=== PATIENT | female | born 1955 | race American Indian/Alaskan Native ===

== ENCOUNTER 2017-08-01 12:14 | Emergency (ER) | payer SELFPAY ==
[2017-08-01 14:16] LABS: Bacteria,Urine 1+ /HPF (Negative); Bilirubin,Urine NEG (Negative); Blood,Urine NEG (Negative); Color,Urine Yellow (Yellow); Granular Casts,Urine 1 /LPF; Mucus,Urine FEW /HPF; Nitrite,Urine NEG (Negative); Urobilinogen,Urine < 2.0 mg/dL (<2.0)
[2017-08-01 14:18] LABS: RBC,Urine < 1.0 /HPF (0.0-6.0)
[2017-08-01 14:21] LABS: Basophils # (Auto) 0.1 K/mm3 (0.0-0.1); Basophils % (Auto) 0.7 % (0.0-1.8); Eosinophils # (Auto) 0.1 K/mm3 (0.0-0.4); Eosinophils % (Auto) 1.3 % (0.0-4.3); Hematocrit 44.1 % (30.3-42.9); Hemoglobin 14.3 gm/dl (10.1-14.3); Lymphocytes # (Auto) 2.5 K/mm3 (1.2-5.4); Lymphocytes % (Auto) 34.7 % (13.4-35.0); Mean Corpuscular HGB Conc 33 % (30-34); Mean Corpuscular Hemoglobin 29 pg (28-32); Mean Corpuscular Volume 90 fl (79-97); Monocytes # (Auto) 0.4 K/mm3 (0.0-0.8); Monocytes % (Auto) 5.9 % (0.0-7.3); Platelet Count 277 K/mm3 (140-440); Red Blood Count 4.92 M/mm3 (3.65-5.03); Red Cell Distribution Width 15.1 % (13.2-15.2)
[2017-08-01 14:37] LABS: Alanine Aminotransferase 13 units/L (7-56); Albumin 4.3 g/dL (3.9-5); BUN/Creatinine Ratio 19; Blood Urea Nitrogen 13 mg/dL (7-17); Calcium 9.5 mg/dL (8.4-10.2); Hemolysis Index 25
[2017-08-01] MEDS ORDERED: CATAPRES PO ONE (16:29)
[2017-08-01] MEDS ORDERED: ZOFRAN IV ONE (16:29)
[2017-08-01] MEDS ORDERED: TORADOL IV ONE (16:29)
[2017-08-01] MEDS ORDERED: MORPHINE IV ONE (16:29)
--- NOTE | 2017-08-01 17:50 | Cat Scan Report ---
FINAL REPORT EXAM: CT ABDOMEN PELVIS W CON HISTORY: right sided abd pain TECHNIQUE: CT abdomen and pelvis with intravenous contrast PRIORS: None. FINDINGS: No acute abnormality identified in the lung bases. No focal abnormality identified within the liver parenchyma. The spleen demonstrates normal size and attenuation. No pancreatic abnormalities seen. The kidneys demonstrate symmetric contrast enhancement. No evidence of hydronephrosis. The adrenal glands are unremarkable Abdominal aorta is normal in caliber. No pathologically enlarged lymph nodes are identified. No signs of free fluid or free air No evidence of small bowel dilatation. Colon is nondistended. No pericolonic inflammatory change. The appendix is identified and is normal in size and attenuation Urinary bladder is unremarkable. IMPRESSION: Negative. No acute abnormalities seen
[2017-08-01 18:55] VITALS: BP 170/88
--- NOTE | 2017-08-01 19:26 | Emergency Department Report ---
ED Abdominal Pain HPI - General Chief Complaint: Abdominal Pain Stated Complaint: ABD PAIN Time Seen by Provider: 08/01/17 16:24 Source: patient Mode of arrival: Ambulatory Limitations: No Limitations - History of Present Illness Initial Comments: Patient is a 61-year-old female who has a past medical history of hypertension who is presenting with right-sided abdominal pain. Patient states pain is been present for approximately one month but is getting worse. Patient states that the pains got to the point where it hurts even touch the skin on the right side. Patient noticed some small fine bumps yesterday but they have dissipated. She denies fever nausea vomiting diarrhea cough chest pain at this time. Severity scale (0 -10): 8 Quality: stabbing, aching Consistency: constant - Related Data Previous Rx's Medication Instructions Recorded Last Taken Type Acyclovir 800 mg PO TID #21 tablet 08/01/17 Unknown Rx HYDROcodone/APAP 5-325 [[place] 1 each PO Q6HR PRN #12 tablet 08/01/17 Unknown Rx 5/325] Lisinopril/Hydrochlorothiazide 1 each PO DAILY #30 tablet 08/01/17 Unknown Rx [Zestoretic 10-12.5 mg Tablet] Allergies Allergy/AdvReac Type Severity Reaction Status Date / Time No Known Allergies Allergy Unverified 08/01/17 13:20 ED Review of Systems ROS: Stated complaint: ABD PAIN Other details as noted in HPI Comment: All other systems reviewed and negative ED Past Medical Hx - Past Medical History Hx Hypertension: Yes - Surgical History Past Surgical History?: Yes Additional Surgical History: had morphine pump removed 1 year ago, back surgery and neck surgery - Social History Smoking Status: Current Every Day Smoker Substance Use Type: None - Medications Home Medications: Home Medications Medication Instructions Recorded Confirmed Last Taken Type Acyclovir 800 mg PO TID #21 tablet 08/01/17 Unknown Rx HYDROcodone/APAP 5-325 [[place] 1 each PO Q6HR PRN #12 tablet 08/01/17 Unknown Rx 5/325] Lisinopril/Hydrochlorothiazide 1 each PO DAILY #30 tablet 08/01/17 Unknown Rx [Zestoretic 10-12.5 mg Tablet] ED Physical Exam - General Limitations: No Limitations General appearance: alert, in no apparent distress - Head Head exam: Present: atraumatic, normocephalic - Eye Eye exam: Present: normal appearance - ENT ENT exam: Present: mucous membranes moist - Neck Neck exam: Present: normal inspection - Respiratory Respiratory exam: Present: normal lung sounds bilaterally. Absent: respiratory distress - Cardiovascular Cardiovascular Exam: Present: regular rate, normal rhythm. Absent: systolic murmur, diastolic murmur, rubs, gallop - GI/Abdominal GI/Abdominal exam: Present: soft, tenderness (right upper quadrant), normal bowel sounds. Absent: distended, guarding, rebound, rigid - Extremities Exam Extremities exam: Present: normal inspection - Back Exam Back exam: Present: normal inspection - Neurological Exam Neurological exam: Present: alert, oriented X3 - Psychiatric Psychiatric exam: Present: normal affect, normal mood - Skin Skin exam: Present: warm, dry, intact, normal color. Absent: rash ED Course Vital Signs 08/01/17 08/01/17 08/01/17 13:21 16:11 16:15 Temperature 98.2 F Pulse Rate 86 79 Respiratory 20 23 12 Rate Blood Pressure 250/117 244/118 Blood Pressure [Left] Blood Pressure [Right] O2 Sat by Pulse 98 98 Oximetry 08/01/17 08/01/17 08/01/17 16:20 16:31 16:45 Temperature Pulse Rate 73 84 Respiratory 18 10 L 11 L Rate Blood Pressure 239/116 253/128 Blood Pressure [Left] Blood Pressure [Right] O2 Sat by Pulse 99 99 98 Oximetry 08/01/17 08/01/17 08/01/17 16:50 16:57 17:20 Temperature Pulse Rate 78 Respiratory 18 18 Rate Blood Pressure 249/124 Blood Pressure [Left] Blood Pressure [Right] O2 Sat by Pulse Oximetry 08/01/17 08/01/17 08/01/17 17:23 17:28 17:31 Temperature Pulse Rate 66 66 Respiratory 10 L 18 8 L Rate Blood Pressure 192/100 192/100 Blood Pressure [Left] Blood Pressure [Right] O2 Sat by Pulse 100 98 Oximetry 08/01/17 08/01/17 08/01/17 17:45 18:00 18:15 Temperature Pulse Rate 64 62 59 L Respiratory 13 13 13 Rate Blood Pressure 192/100 180/95 180/95 Blood Pressure [Left] Blood Pressure [Right] O2 Sat by Pulse 97 99 98 Oximetry 08/01/17 08/01/17 08/01/17 18:31 18:40 18:54 Temperature 98.7 F 98.8 F Pulse Rate 62 58 L 56 L Respiratory 14 18 18 Rate Blood Pressure 180/95 Blood Pressure 180/95 170/88 [Left] Blood Pressure 180/95 [Right] O2 Sat by Pulse 96 98 97 Oximetry ED Medical Decision Making - Lab Data Result diagrams: 08/01/17 13:56 08/01/17 13:56 - Radiology Data Radiology results: report reviewed CT abdomen and pelvis shows no acute process - Medical Decision Making Patient is a 61-year-old female past medical history 1 month of abdominal pain in the right upper quadrant. CT was negative therefore ultrasound of the gallbladder was ordered. Patient's pain was controlled with morphine and Toradol. The patient's blood pressure was elevated on arrival. Patient was given Catapres did improve the blood pressure. Patient does not have any signs of end organ damage. Patient has been off of her blood pressure medicines for several months. Critical care attestation.: If time is entered above; I have spent that time in minutes in the direct care of this critically ill patient, excluding procedure time. ED Disposition Clinical Impression: Abdominal pain Qualifiers: Abdominal location: right upper quadrant Qualified Code(s): R10.11 - Right upper quadrant pain Disposition: DC-01 TO HOME OR SELFCARE Is pt being admited?: No Does the pt Need Aspirin: No Condition: Fair Instructions: Abdominal Pain (ED) Prescriptions: Acyclovir 800 mg PO TID #21 tablet HYDROcodone/APAP 5-325 [[place] 5/325] 1 each PO Q6HR PRN #12 tablet PRN Reason: Pain Lisinopril/Hydrochlorothiazide [Zestoretic 10-12.5 mg Tablet] 1 each PO DAILY # 30 tablet Referrals: EUSEBIO LOERA MD [Staff Physician] - 3-5 Days
--- NOTE | 2017-08-01 20:04 | Ultrasound Report ---
FINAL REPORT EXAM: US ABDOMEN LIMITED HISTORY: RUQ pain TECHNIQUE: Ultrasound abdomen PRIORS: None. FINDINGS: No focal abnormalities identified in the visualized portion liver parenchyma. No evidence of cholelithiasis or gallbladder wall thickening. No pericholecystic fluid seen. The common bile duct is within normal limits measuring 0.42 centimeters Right kidney demonstrates no evidence of hydronephrosis. It measures 10.6 x 6.3 x 4.2 centimeters. Cortical thickness 0.8 centimeters IMPRESSION: Negative. No evidence of biliary obstruction or cholelithiasis
== END 2017-08-01 20:38 | disposition home or self-care (01) ==
LOC: ED 12:14
DX: R10.11 Right upper quadrant pain (principal); I10 Essential (primary) hypertension; F17.200 Nicotine dependence, unspecified, uncomplicated; Z98.890 Other specified postprocedural states
CPT/HCPCS: 36415; 74177; 76705; 80053; 81001; 85025; 93005; 93010; 96374; 96375; 99284; J1885; J2270; J2405; Q9967